=== PATIENT | female | born 1995 | race Hispanic/Latino ===

== ENCOUNTER 2016-11-24 20:37 | Emergency (ER) | payer OTHER ==
[2016-11-24 20:44] VITALS: BP 111/68; PULSE 109; RESP 18; TEMP 99.1; O2SAT 100
[2016-11-24] MEDS ORDERED: Sodium Chloride 0.9% 1,000 ML IV STA (22:48)
--- NOTE | 2016-11-24 22:52 | ED PDOC ---
HPI:Nausea, Vomiting, Diarrhea Time Seen by Provider: 11/24/16 22:31 Chief Complaint (Nursing): Abdominal Pain Chief Complaint (Provider): vomiting, diarrhea History Per: Patient History/Exam Limitations: no limitations Onset/Duration Of Symptoms: Days (2) Current Symptoms Are (Timing): Still Present Quality Of Discomfort: Cramping, "Pain" Associated Symptoms: Nausea, Vomiting, Diarrhea Additional History Per: Patient Additional Complaint(s): 21 y/o female presents for eval of generalized abdominal pain x 2 days. Associated nonbilious vomiting, nonbloody diarrhea (x 3 each) today. Denies fever, chest pain, shortness of breath, palpitations, recent travel, sick contacts. Past Medical History Reviewed: Historical Data, Nursing Documentation, Vital Signs Vital Signs: Last Vital Signs Temp 99.1 F 11/24/16 20:40 Pulse 109 H 11/24/16 20:40 Resp 18 11/24/16 20:40 BP 111/68 11/24/16 20:40 Pulse Ox 100 11/24/16 20:40 - Medical History PMH: Anemia - Surgical History Surgical History: Appendectomy - Family History Family History: States: Unknown Family Hx - Home Medications Home Medications: Ambulatory Orders Medication Instructions Recorded Dicyclomine [Dicyclomine HCl] 10 mg PO TID #15 cap 11/25/16 Ondansetron ODT [Zofran ODT] 4 mg PO TID PRN #10 odt 11/25/16 - Allergies Allergies/Adverse Reactions: Allergies Allergy/AdvReac Type Severity Reaction Status Date / Time No Known Allergies Allergy Verified 11/24/16 20:40 Review of Systems ROS Statement: Except As Marked, All Systems Reviewed And Found Negative Gastrointestinal: Positive for: Nausea, Vomiting, Abdominal Pain, Diarrhea Physical Exam - Reviewed Nursing Documentation Reviewed: Yes Vital Signs Reviewed: Yes - Physical Exam Appears: Positive for: Well, Non-toxic, No Acute Distress Head Exam: Positive for: ATRAUMATIC, NORMAL INSPECTION, NORMOCEPHALIC Skin: Positive for: Normal Color Eye Exam: Positive for: Normal appearance ENT: Positive for: Normal ENT Inspection Cardiovascular/Chest: Positive for: Regular Rate, Rhythm Respiratory: Positive for: Normal Breath Sounds Gastrointestinal/Abdominal: Positive for: Bowel Sounds, Soft, Tenderness ( diffuse discomfort to palpation). Negative for: Distended, Rebound Back: Positive for: Normal Inspection Extremity: Positive for: Normal ROM Neurologic/Psych: Positive for: Alert, Oriented - Laboratory Results Result Diagrams: 11/24/16 23:22 11/24/16 23:22 - ECG O2 Sat by Pulse Oximetry: 100 - Progress ED Course And Treament: labs, urine, IV fluids, IV zofran, PO bentyl On re-eval, patient resting comfortably; states symptoms improved. Tolerating PO. Patient educated on findings, discharged with rx Zofran, Bentyl. Advised follow up PMD 2-3 days. [place] diet. Fluids. Return to ED for worsening/concerning symptoms. Disposition - Clinical Impression Clinical Impression: Gastroenteritis - Patient ED Disposition Is Patient to be Admitted: No Counseled Patient/Family Regarding: Studies Performed, Diagnosis, Need For Followup, Rx Given - Disposition Disposition: Routine/Home Disposition Time: 00:23 Condition: IMPROVED Prescriptions: Dicyclomine [Dicyclomine HCl] 10 mg PO TID #15 cap Ondansetron ODT [Zofran ODT] 4 mg PO TID PRN #10 odt PRN Reason: Nausea/Vomiting Instructions: Gastroenteritis (ED)
[2016-11-24 23:25] LABS: BASO % 0.2 % (0.0-2.0); EOS % 0.2 % (0.0-4.0); HEMATOCRIT 38.1 % (34.0-47.0); LYMPH # 0.7 K/uL (1.0-4.3); LYMPH % 6.2 % (20.0-40.0); MEAN CELL VOLUME 86.3 fl (81.0-99.0); MEAN CORPUSCULAR HEMOGLOBIN 28.2 pg (27.0-31.0); MEAN CORPUSCULAR HGB CONC 32.7 g/dL (33.0-37.0); MEAN PLATELET VOLUME 8.9 fl (7.2-11.7); MONO # 0.6 K/uL (0.0-0.8); MONO % 5.4 % (0.0-10.0); PLATELET COUNT 200 K/uL (130-400); RED CELL DISTRIBUTION WIDTH 13.6 % (11.5-14.5); WHITE BLOOD COUNT 11.3 K/uL (4.8-10.8)
[2016-11-24 23:27] LABS: RBC URINE 1 /hpf (0-3); URINE BACTERIA RARE (<OCC); URINE BILIRUBIN NEGATIVE (NEGATIVE); URINE BLOOD NEGATIVE (NEGATIVE); URINE COLOR YELLOW (YELLOW); URINE GLUCOSE (UA) NEG (Normal); URINE KETONE NEGATIVE (NEGATIVE); URINE LEUKOCYTE ESTERASE NEG Leu/uL (Negative); URINE PROTEIN NEGATIVE (NEGATIVE); URINE UROBILINOGEN 0.2-1.0 mg/dL (0.2-1.0); WBC URINE 1 /hpf (0-5)
[2016-11-24 23:34] LABS: ALB/GLOB RATIO 1.7 (1.0-2.1); ALKALINE PHOSPHATASE 65 U/L (38-126); ALT/SGPT 33 U/L (9-52); AST/SGOT 27 U/L (14-36); BILIRUBIN,TOTAL 0.6 mg/dl (0.2-1.3); BLOOD UREA NITROGEN 8 mg/dl (7-17); CALCIUM 9.7 mg/dL (8.4-10.2); CARBON DIOXIDE 27 mmol/L (22-30); CHLORIDE 100 mmol/L (98-107); GFR AFRICAN-AMERICAN > 60; GLUCOSE,RANDOM 96 mg/dL (65-105); LIPASE 61 U/L (23-300); POTASSIUM 3.6 MMOL/L (3.6-5.0); SODIUM 139 mmol/l (132-148); TOTAL PROTEIN 7.6 G/DL (6.3-8.2)
[2016-11-25 00:47] LABS: NEUTROPHIL 86 % (42-75); TOTAL CELLS COUNTED 100
[2016-11-25 00:48] LABS: ACANTHOCYTES SLIGHT; LARGE PLATELETS PRESENT
== END 2016-11-25 00:43 | disposition home or self-care (01) ==
LOC: H.ER 20:37
DX: K52.9 Noninfective gastroenteritis and colitis, unspecified (principal); R10.9 Unspecified abdominal pain